=== PATIENT | male | born 1945 | race Caucasian/White ===

== ENCOUNTER 2018-12-16 06:57 | Inpatient (IN) | payer MEDICARE ==
[~2018-12-16] VITALS: Ht 180.3 cm; Wt 81.4 kg
--- NOTE | 2018-12-16 07:28 | NUR ---
ER PROVIDER IN TO EVAL PT
[2018-12-16] MEDS ORDERED: SODIUM CHLORIDE FLUSH 10ML SYR IVF ONE (07:30)
[2018-12-16 07:48] LABS: BASOPHILS # (AUTO) 0.04 x10^3/uL (0-0.1); BASOPHILS % (AUTO) 1 % (0-1); EOSINOPHILS # (AUTO) 0.24 x10^3/uL (0-0.4); EOSINOPHILS % (AUTO) 3 % (1-7); LYMPHOCYTES # (AUTO) 0.97 x10^3/uL (1-3.4); LYMPHOCYTES % (AUTO) 11 % (22-44); MD NO; MEAN CORPUSCULAR HEMOGLOBIN 31.2 pg (27.5-34.5); MEAN CORPUSCULAR HGB CONC 33.5 g/dL (33.2-36.2); MEAN CORPUSCULAR VOLUME 93.1 fL (81-97); MEAN PLATELET VOLUME 7.9 fL (7.4-10.4); MONOCYTES # (AUTO) 0.67 x10^3/uL (0.2-0.8); MONOCYTES % (AUTO) 8 % (2-9); NEUTROPHILS # (AUTO) 6.89 x10^3/uL (1.8-6.8); NEUTROPHILS % (AUTO) 78 % (42-75); PLATELET COUNT 199 x10^3/uL (130-400); RED BLOOD COUNT 5.12 x10^6/uL (4.38-5.82); RED CELL DISTRIBUTION WIDTH 13.9 % (9.4-14.8)
--- NOTE | 2018-12-16 08:19 | NUR ---
PT AMBULATED TO WITH STEADY GAIT. BACK TO [facility]. ERMD IN TO UPDATE PT ON POC. PT TO BE ADMITTED, ORDER FOR LASIX RECIEVED WITH PARAMETERS TO HOLD IF POTASSIUM LEVEL OUT OF RANGE. CHEM PANEL REQUIRED REDRAW, AWAITING RESULTS
[2018-12-16 08:21] LABS: ALANINE AMINOTRANSFERASE 26 U/L (12-78); ALBUMIN 3.7 g/dL (3.4-5.0); ANION GAP 6 mmol/L (5-15); CALCIUM 8.6 mg/dL (8.5-10.1); CHLORIDE 109 mmol/L (98-107); CREATININE 1.09 mg/dL (0.7-1.3)
[2018-12-16 08:25] LABS: ALKALINE PHOSPHATASE 148 U/L (45-117); BILIRUBIN,TOTAL 0.7 mg/dL (0.2-1.0); TOTAL PROTEIN 7.3 g/dL (6.4-8.2)
[2018-12-16] MEDS ORDERED: FUROSEMIDE 40 MG/4 ML ONE (08:26)
[2018-12-16] MEDS ORDERED: NITROGLYCERIN OINT 2%, 1GM TP ONE ×2 (08:26→08:30)
[2018-12-16] MEDS ORDERED: FUROSEMIDE 40 MG/4 ML IV ONE (08:30)
[2018-12-16] MEDS ORDERED: PLEASE ENTER ALLERGIES MC SCH (08:30)
[2018-12-16] MEDS ORDERED: ASPIRIN 81 MG TABLET CHEW ONE (08:41)
--- NOTE | 2018-12-16 08:50 | NUR ---
PT MEDICATED PER MAR. NAD NOTED AT THIS TIME
[2018-12-16] MEDS ORDERED: ASPIRIN 81 MG TABLET CHEW PO ONE (09:00)
--- NOTE | 2018-12-16 09:05 | NUR ---
REPORT GIVEN TO RECCYDNEY PHAM.
[2018-12-16] MEDS ORDERED: hydrALAzine 20 MG/ML, 1ML IVPush PRN (09:30)
[2018-12-16] MEDS ORDERED: HEPARIN 5,000 UNITS/ML, 1ML SQ SCH (10:00)
[2018-12-16] MEDS ORDERED: LISI-170 PO (10:01)
[2018-12-16] MEDS ORDERED: FURO40TA6 PO (10:01)
[2018-12-16] MEDS ORDERED: LISINOPRIL 20 MG TABLET PO SCH (10:30)
[2018-12-16] MEDS ORDERED: HEPARIN 5,000 UNITS/ML, 1ML IV ONE (11:00)
[2018-12-16] MEDS: HEPARIN 25,000 UNITS/500ML PMX 500 ML IV PRN (11:05)
[2018-12-16 11:07] VITALS: BP 135/79
[2018-12-16] MEDS: CARVEDILOL 3.125 MG TABLET PO SCH ×2 (11:13→17:11)
[2018-12-16 12:25] VITALS: BP 99/64
[2018-12-16] MEDS ORDERED: FUROSEMIDE 20 MG/2 ML IV SCH (17:00)
[2018-12-16 17:11] VITALS: BP 114/74
[2018-12-16] MEDS: HEPARIN 5,000 UNITS/ML, 1ML IV PRN (18:15)
[2018-12-16 19:05] VITALS: BP 98/60
[2018-12-16 20:15] VITALS: BP 94/56
[2018-12-17 01:32] VITALS: BP 96/56
[2018-12-17 06:10] VITALS: BP 102/62
[2018-12-17] MEDS: ASPIRIN 81 MG TABLET EC PO SCH (06:12)
[2018-12-17] MEDS: CARVEDILOL 3.125 MG TABLET PO SCH ×2 (06:12→18:04)
[2018-12-17 06:49] LABS: BASOPHILS # (AUTO) 0.04 x10^3/uL (0-0.1); BASOPHILS % (AUTO) 1 % (0-1); EOSINOPHILS % (AUTO) 6 % (1-7); LYMPHOCYTES # (AUTO) 1.43 x10^3/uL (1-3.4); LYMPHOCYTES % (AUTO) 17 % (22-44); MD NO; MEAN CORPUSCULAR HGB CONC 33.4 g/dL (33.2-36.2); MEAN CORPUSCULAR VOLUME 92.6 fL (81-97); MEAN PLATELET VOLUME 8.1 fL (7.4-10.4); MONOCYTES # (AUTO) 0.73 x10^3/uL (0.2-0.8); MONOCYTES % (AUTO) 9 % (2-9); NEUTROPHILS # (AUTO) 5.73 x10^3/uL (1.8-6.8); NEUTROPHILS % (AUTO) 68 % (42-75); PLATELET COUNT 189 x10^3/uL (130-400); RED BLOOD COUNT 4.93 x10^6/uL (4.38-5.82); RED CELL DISTRIBUTION WIDTH 13.8 % (9.4-14.8)
[2018-12-17 06:58] LABS: ALANINE AMINOTRANSFERASE 22 U/L (12-78); ALBUMIN 3.6 g/dL (3.4-5.0); ANION GAP 5 mmol/L (5-15); CALCIUM 8.8 mg/dL (8.5-10.1); CHLORIDE 106 mmol/L (98-107); CREATININE 0.97 mg/dL (0.7-1.3)
[2018-12-17 07:01] LABS: ALKALINE PHOSPHATASE 103 U/L (45-117); BILIRUBIN,TOTAL 1.2 mg/dL (0.2-1.0); TOTAL PROTEIN 6.8 g/dL (6.4-8.2)
[2018-12-17] MEDS: HEPARIN 5,000 UNITS/ML, 1ML IV PRN (08:00)
[2018-12-17 09:26] LABS: CHOL/HDL RATIO 3.8; LDL/HDL RATIO 2.3 (0.5-3.0)
[2018-12-17 09:56] VITALS: BP 108/68
[2018-12-17] MEDS: LISINOPRIL 5 MG TABLET PO SCH (09:59)
[2018-12-17] MEDS: HEPARIN 25,000 UNITS/500ML PMX 500 ML IV PRN (10:03)
[2018-12-17 15:05] VITALS: BP 104/64
[2018-12-17] MEDS: FUROSEMIDE 20 MG/2 ML IV SCH (18:05)
[2018-12-17 18:36] VITALS: BP 113/70
[2018-12-17] MEDS ORDERED: ATORVASTATIN 40 MG TABLET PO SCH (21:00)
[2018-12-17] MEDS: ATORVASTATIN 80 MG TABLET PO SCH (21:11)
[2018-12-18] VITALS (7 sets, daily range): BP systolic 92–124; BP diastolic 57–72
[2018-12-18] MEDS: CARVEDILOL 3.125 MG TABLET PO SCH ×2 (05:32→17:22)
[2018-12-18] MEDS: ASPIRIN 81 MG TABLET EC PO SCH (05:32)
[2018-12-18 05:50] LABS: BASOPHILS # (AUTO) 0.03 x10^3/uL (0-0.1); BASOPHILS % (AUTO) 0 % (0-1); EOSINOPHILS # (AUTO) 0.61 x10^3/uL (0-0.4); EOSINOPHILS % (AUTO) 7 % (1-7); LYMPHOCYTES # (AUTO) 1.53 x10^3/uL (1-3.4); LYMPHOCYTES % (AUTO) 19 % (22-44); MD NO; MEAN CORPUSCULAR HEMOGLOBIN 31.3 pg (27.5-34.5); MEAN CORPUSCULAR VOLUME 94.9 fL (81-97); MEAN PLATELET VOLUME 8.6 fL (7.4-10.4); MONOCYTES # (AUTO) 0.84 x10^3/uL (0.2-0.8); MONOCYTES % (AUTO) 10 % (2-9); NEUTROPHILS # (AUTO) 5.25 x10^3/uL (1.8-6.8); NEUTROPHILS % (AUTO) 64 % (42-75); PLATELET COUNT 185 x10^3/uL (130-400); RED BLOOD COUNT 4.63 x10^6/uL (4.38-5.82); RED CELL DISTRIBUTION WIDTH 13.9 % (9.4-14.8)
[2018-12-18 06:15] LABS: CHLORIDE 104 mmol/L (98-107)
[2018-12-18 06:21] LABS: ALANINE AMINOTRANSFERASE 20 U/L (12-78); ALBUMIN 3.4 g/dL (3.4-5.0); ALKALINE PHOSPHATASE 98 U/L (45-117); ANION GAP 6 mmol/L (5-15); CALCIUM 8.6 mg/dL (8.5-10.1); CREATININE 0.89 mg/dL (0.7-1.3); TOTAL PROTEIN 6.4 g/dL (6.4-8.2)
[2018-12-18] MEDS: HEPARIN 25,000 UNITS/500ML PMX 500 ML IV PRN (06:23)
[2018-12-18] MEDS ORDERED: SODIUM CHLORIDE 0.9% 1,000 ML IV SCH ×2 (08:00→14:39)
[2018-12-18] MEDS: FUROSEMIDE 20 MG/2 ML IV SCH ×2 (08:33→17:22)
[2018-12-18] MEDS: LISINOPRIL 5 MG TABLET PO SCH (09:31)
[2018-12-18] MEDS ORDERED: FENTANYL PF 100 MCG/2ML ONE (14:02)
[2018-12-18] MEDS ORDERED: MIDAZOLAM 1 MG/ML, 2ML ONE (14:02)
[2018-12-18] MEDS ORDERED: LIDOCAINE-MPF 1%, 5ML ONE (14:03)
[2018-12-18] MEDS ORDERED: VERAPAMIL 2.5 MG/ML, 2ML ONE (14:03)
[2018-12-18] MEDS ORDERED: MELATONIN 3 MG TABLET PO PRN (20:30)
[2018-12-18] MEDS: ATORVASTATIN 80 MG TABLET PO SCH (20:59)
[2018-12-18] MEDS: HEPARIN 5,000 UNITS/ML, 1ML IV PRN (22:17)
[2018-12-19 01:54] VITALS: BP 102/70
[2018-12-19] MEDS: HEPARIN 25,000 UNITS/500ML PMX 500 ML IV PRN (02:05)
[2018-12-19 04:54] LABS: BASOPHILS # (AUTO) 0.02 x10^3/uL (0-0.1); BASOPHILS % (AUTO) 0 % (0-1); EOSINOPHILS # (AUTO) 0.54 x10^3/uL (0-0.4); EOSINOPHILS % (AUTO) 5 % (1-7); LYMPHOCYTES # (AUTO) 1.24 x10^3/uL (1-3.4); LYMPHOCYTES % (AUTO) 13 % (22-44); MD NO; MEAN CORPUSCULAR HEMOGLOBIN 31.4 pg (27.5-34.5); MEAN CORPUSCULAR HGB CONC 33.2 g/dL (33.2-36.2); MEAN CORPUSCULAR VOLUME 94.6 fL (81-97); MEAN PLATELET VOLUME 8.6 fL (7.4-10.4); MONOCYTES # (AUTO) 0.91 x10^3/uL (0.2-0.8); MONOCYTES % (AUTO) 9 % (2-9); NEUTROPHILS # (AUTO) 7.22 x10^3/uL (1.8-6.8); NEUTROPHILS % (AUTO) 73 % (42-75); PLATELET COUNT 203 x10^3/uL (130-400); RED BLOOD COUNT 5.02 x10^6/uL (4.38-5.82); RED CELL DISTRIBUTION WIDTH 13.8 % (9.4-14.8)
[2018-12-19 05:06] LABS: ALBUMIN 3.7 g/dL (3.4-5.0); ANION GAP 3 mmol/L (5-15); CALCIUM 9.1 mg/dL (8.5-10.1); CHLORIDE 102 mmol/L (98-107)
[2018-12-19 05:10] LABS: ALANINE AMINOTRANSFERASE 19 U/L (12-78); ALKALINE PHOSPHATASE 104 U/L (45-117); BILIRUBIN,TOTAL 1.4 mg/dL (0.2-1.0); CREATININE 0.92 mg/dL (0.7-1.3)
[2018-12-19 05:49] VITALS: BP 108/71
[2018-12-19] MEDS: ASPIRIN 81 MG TABLET EC PO SCH (05:51)
[2018-12-19] MEDS: CARVEDILOL 3.125 MG TABLET PO SCH ×2 (05:51→17:05)
[2018-12-19 07:10] VITALS: BP 97/60
[2018-12-19 09:11] VITALS: BP 111/71
[2018-12-19] MEDS: FUROSEMIDE 20 MG/2 ML IV SCH ×2 (09:16→17:05)
[2018-12-19] MEDS: LISINOPRIL 5 MG TABLET PO SCH (09:16)
[2018-12-19] MEDS: CLOPIDOGREL 75 MG TABLET PO SCH (11:07)
[2018-12-19 13:45] VITALS: BP 90/61
[2018-12-19 18:37] VITALS: BP 103/65
[2018-12-19] MEDS: ATORVASTATIN 80 MG TABLET PO SCH (21:00)
[2018-12-20 00:21] VITALS: BP 100/63
[2018-12-20 04:44] LABS: BASOPHILS # (AUTO) 0.02 x10^3/uL (0-0.1); BASOPHILS % (AUTO) 0 % (0-1); EOSINOPHILS # (AUTO) 0.53 x10^3/uL (0-0.4); EOSINOPHILS % (AUTO) 6 % (1-7); LYMPHOCYTES # (AUTO) 1.28 x10^3/uL (1-3.4); LYMPHOCYTES % (AUTO) 15 % (22-44); MD NO; MEAN CORPUSCULAR HEMOGLOBIN 31.5 pg (27.5-34.5); MEAN CORPUSCULAR HGB CONC 33.8 g/dL (33.2-36.2); MEAN CORPUSCULAR VOLUME 93.3 fL (81-97); MEAN PLATELET VOLUME 8.1 fL (7.4-10.4); MONOCYTES # (AUTO) 0.94 x10^3/uL (0.2-0.8); MONOCYTES % (AUTO) 11 % (2-9); NEUTROPHILS # (AUTO) 5.88 x10^3/uL (1.8-6.8); NEUTROPHILS % (AUTO) 68 % (42-75); PLATELET COUNT 183 x10^3/uL (130-400); RED BLOOD COUNT 4.82 x10^6/uL (4.38-5.82); RED CELL DISTRIBUTION WIDTH 13.6 % (9.4-14.8)
[2018-12-20 04:55] LABS: ALBUMIN 3.6 g/dL (3.4-5.0); ANION GAP 5 mmol/L (5-15); CALCIUM 8.7 mg/dL (8.5-10.1); CHLORIDE 102 mmol/L (98-107)
[2018-12-20 04:58] LABS: ALANINE AMINOTRANSFERASE 21 U/L (12-78); ALKALINE PHOSPHATASE 101 U/L (45-117); CREATININE 0.93 mg/dL (0.7-1.3); TOTAL PROTEIN 6.9 g/dL (6.4-8.2)
[2018-12-20 05:32] VITALS: BP 115/65
[2018-12-20] MEDS: CARVEDILOL 3.125 MG TABLET PO SCH (05:34)
[2018-12-20] MEDS ORDERED: ASPIRIN 81 MG TABLET EC PO SCH (06:00)
[2018-12-20 07:34] VITALS: BP 104/68
[2018-12-20] MEDS ORDERED: SPIRONOLACTONE 25 MG TABLET PO SCH (09:00)
[2018-12-20] MEDS: LISINOPRIL 5 MG TABLET PO SCH (10:07)
[2018-12-20] MEDS: FUROSEMIDE 20 MG/2 ML IV SCH (10:07)
[2018-12-20] MEDS: CLOPIDOGREL 75 MG TABLET PO SCH (10:07)
[2018-12-20 12:40] VITALS: BP 98/64
[2018-12-20] MEDS ORDERED: CARV3.1212 PO (13:53)
[2018-12-20] MEDS ORDERED: SPIR25TA PO (13:53)
[2018-12-20] MEDS ORDERED: ATOR-2 PO (13:53)
[2018-12-20] MEDS ORDERED: CLOP75TA PO (13:53)
[2018-12-20] MEDS ORDERED: LISI-170 PO (13:53)
[2018-12-20] MEDS ORDERED: ASPI81TA45 PO (13:53)
[2018-12-21] MEDS ORDERED: FUROSEMIDE 40 MG TABLET PO SCH (09:00)
== END 2018-12-20 17:10 | disposition home or self-care (01) | DRG 280 ==
LOC: ED 07:28 → EDIP 08:36 → 5SO 09:44 → DCLOUNGE 12-20 16:52
PROVIDERS: ADMIT Internal Medicine; ATTEND Internal Medicine
PROC: 4A023N7 Measurement of Cardiac Sampling and Pressure, Left Heart, Percutaneous Approach (ICD-10-PCS; principal; 2018-12-18)
PROC: B2111ZZ Fluoroscopy of Multiple Coronary Arteries using Low Osmolar Contrast (ICD-10-PCS; 2018-12-18)
PROC: B2151ZZ Fluoroscopy of Left Heart using Low Osmolar Contrast (ICD-10-PCS; 2018-12-18)
DX: I21.4 Non-ST elevation (NSTEMI) myocardial infarction (principal); J96.01 Acute respiratory failure with hypoxia; I50.43 Acute on chronic combined systolic (congestive) and diastolic (congestive) heart failure; I42.9 Cardiomyopathy, unspecified; J84.9 Interstitial pulmonary disease, unspecified; E78.00 Pure hypercholesterolemia, unspecified; E78.5 Hyperlipidemia, unspecified; I11.0 Hypertensive heart disease with heart failure; I25.10 Atherosclerotic heart disease of native coronary artery without angina pectoris; I70.0 Atherosclerosis of aorta; I44.7 Left bundle-branch block, unspecified; I65.23 Occlusion and stenosis of bilateral carotid arteries; Z79.01 Long term (current) use of anticoagulants; Z87.891 Personal history of nicotine dependence; R59.1 Generalized enlarged lymph nodes
CPT/HCPCS: 36415; 71045; 71260; 80053; 80061; 83735; 83880; 84484; 85025; 85520; 93005; 93458; 93880; 96374; 99156; C1769; C1894; C8929; G0378; J1644; J1940; J2250; J3010; Q9957; Q9967